=== PATIENT | male | born 1980 | race Caucasian/White ===

== ENCOUNTER 2016-10-22 18:36 | Emergency (ER) | payer OTHER ==
[~2016-10-22] VITALS: Ht 175.3 cm; Wt 88.2 kg
[2016-10-22] MEDS ORDERED: KEFLEX500 MG PO (18:55)
[2016-10-22] MEDS ORDERED: MOTRIN800 MG PO (18:55)
[2016-10-22 19:17] VITALS: BP 147/102
== END 2016-10-22 19:18 | disposition home or self-care (01) ==
LOC: EME 18:36
DX: S70.362A Insect bite (nonvenomous), left thigh, initial encounter (principal); L03.116 Cellulitis of left lower limb; W57.XXXA Bitten or stung by nonvenomous insect and other nonvenomous arthropods, initial encounter
CPT/HCPCS: 99281; 99283